=== PATIENT | male | born 1985 | race Caucasian/White ===

== ENCOUNTER → 2017-10-27 | Outpatient (CLI) | payer OTHER ==
[~2017-10-27] MED LIST: BLOO-1318 MC; DOCU-416 PO; IBUP600T22 PO; INSU100C10 SQ; INSU100C12 SQ; INSU100V24 SQ; LANI SUBQ; LISI5TAB25 PO; PER PO
== END ==
LOC: LAB 10:24
PROVIDERS: ATTEND Internal Medicine
DX: E11.9 Type 2 diabetes mellitus without complications (principal); R80.9 Proteinuria, unspecified
CPT/HCPCS: 81001; 82043

== ENCOUNTER 2018-05-12 03:36 | Emergency (ER) | payer OTHER ==
--- NOTE | 2018-05-12 03:40 | ER Report ---
History and Physical Time Seen By MD: 03:40 HPI/ROS CHIEF COMPLAINT: Cough, shortness breath, sinus pressure HISTORY OF PRESENT ILLNESS: Patient is a 32-year-old male here with complaints of 3 day history of cough, shortness breath, sinus pressure. Patient reports having a sick contact of his child. He reports that he has been unable to sleep for the past several days due to cough, shortness of breath. Patient reports having childhood asthma history and current type I diabetes. Patient has a temp of 99.7 at time of evaluation. Patient reports not having significant relief of symptoms with Mucinex or hkeg-zvb-[id number] cough medication. REVIEW OF SYSTEMS: Constitutional: No fever, no chills. Eyes: No discharge. ENT: + sore throat. Cardiovascular: No chest pain, no palpitations. Respiratory: + cough, + shortness of breath. Gastrointestinal: No abdominal pain, no vomiting. Genitourinary: No hematuria. Musculoskeletal: No back pain. Skin: No rashes. Neurological: + headache, + sinus pressure. Allergies: Coded Allergies: No Known Drug Allergies (Unverified , 10/13/16) Home Meds Active Scripts Azithromycin (ZITHROMAX) 250 Mg Tablet, 1 TAB PO QDAY for 4 Days, #4 TAB Prov:MONTRELL FRITZ DO 05/12/18 Benzonatate 100 Mg Cap (TESSALON PERLE 100 MG CAP) 100 Mg Capsule, 100 MG PO TID, #15 CAP Prov:MONTRELL FRITZ DO 05/12/18 Guaifenesin/Codeine (GUAIFENESIN-CODEINE SYRUP) 5 Ml Syrp, 5 ML PO Q6H PRN for COUGH, #120 ML 0 Refills Prov:MONTRELL FRITZ DO 05/12/18 Insulin Glargine (LANTUS) 100 Unit/Ml Soln, 25 UNIT SUBQ DIRECTED, #4 VIAL 2 Refills 25 units in am and 15 units in pm Prov:JOSÉ LUIS FERRERA MD 12/17/17 Lisinopril (LISINOPRIL) 5 Mg Tablet, 1 TAB PO QDAY, #90 TAB 3 Refills Prov:JOSÉ LUIS FERRERA MD 12/17/17 Insulin Lispro 100 Un/Ml Vial (HUMALOG 100 U/ML VIAL) 100 Unit/1 Ml Vial, 5 UNIT SQ TID, #4 VIAL 3 Refills Prov:JOSÉ LUIS FERRERA MD 12/17/17 Blood Sugar Diagnostic (ONE TOUCH ULTRA TEST STRIPS) 1 Each Strip, 1 EACH MC TID, #300 STRIP 4 Refills Prov:JOSÉ LUIS FERRERA MD 12/17/17 Smoking Status: Never Smoker Hx Substance Use Disorder: No Hx Alcohol Use: No Constitutional Vital Sign - Last 24 Hours 05/12/18 05/12/18 05/12/18 05/12/18 03:40 03:40 03:50 03:50 Temp 99.7 Pulse 117 107 Resp 17 22 B/P (MAP) 118/68 118/68 (85) Pulse Ox 91 91 O2 Delivery Room Air Room Air 05/12/18 05/12/18 05/12/18 05/12/18 03:58 04:00 04:06 04:13 Pulse 116 116 Resp 22 22 B/P (MAP) 116/79 (91) Pulse Ox 91 05/12/18 05/12/18 05/12/18 05/12/18 04:13 04:16 04:30 04:36 Pulse 112 133 Resp 22 B/P (MAP) 110/70 (83) Pulse Ox 92 91 O2 Delivery Room Air Physical Exam General Appearance: The patient is alert, has no immediate need for airway protection and no signs of toxicity. Uncomfortable appearing Eyes: Pupils equal and round no pallor or injection. ENT, Mouth: Mucous membranes are moist + maxillary and frontal sinus pressure Respiratory: There are no retractions,coarse lung sounds b/l Cardiovascular: + tachycardia, regular Gastrointestinal: Abdomen is soft and non tender, no masses, bowel sounds normal. Neurological: No focal neuro deficits Skin: Warm and dry, no rashes. DIFFERENTIAL DIAGNOSIS: After history and physical exam differential diagnosis was considered for adult fever including but not limited to viral syndromes inc luding influenza, bronchitis, pneumonia and sepsis. Medical Decision Making ED Course/Re-evaluation ED Course Patient is a 32-year-old male here with 3 day history of cough, shortness of breath, sinus pressure, general malaise. Patient reports having a sick contact of his child. Patient reports having a persistent dry cough preventing him from sleeping for the past several nights. Patient has been taking wamy-uxi-jjhrmfs cough medications without significant relief of symptoms including Mucinex. Patient was given a liter of fluids to do medical symptoms of dehydration and tachycardia. Patient was also given DuoNeb treatments for shortness of breath and coarse breath sounds bilaterally, worse in the RLL. Patient was administered Tessalon Perles and was given a prescription for Tessalon Perles and guaifenesin with codeine for nighttime cough relief. Chest x-ray was completed and demonstrated a right lower lobe pneumonia. Patient was placed on azithromycin and was given 500 mg prior to discharge and a prescription for 250 mg for 4 subsequent days. Albuteral HFA was given for OP dyspnea Q 6 H PRN. Patient was advised to return promptly if you develop worsening shortness breath, fevers, worsening malaise. Decision to Disposition Date: May 12, 2018 Decision to Disposition Time: 05:50 Depart Departure Latest Vital Signs Vital Signs Date Time Temp Pulse Resp B/P (MAP) Pulse Ox O2 Delivery O2 Flow Rate FiO2 05/12/18 04:36 133 91 05/12/18 04:30 110/70 (83) 05/12/18 04:16 22 05/12/18 04:13 Room Air 05/12/18 03:40 99.7 Impression: Primary Impression: Pneumonia Additional Impressions: Cough Shortness of breath Condition: Improved Disposition: HOME OR SELF-CARE Referrals: JOSÉ LUIS FERRERA MD (PCP) New Scripts Azithromycin (ZITHROMAX) 250 Mg Tablet 1 TAB PO QDAY for 4 Days, #4 TAB Prov: MONTRELL FRITZ DO 05/12/18 Benzonatate 100 Mg Cap (TESSALON PERLE 100 MG CAP) 100 Mg Capsule 100 MG PO TID, #15 CAP Prov: MONTRELL FRITZ DO 05/12/18 Guaifenesin/Codeine (GUAIFENESIN-CODEINE SYRUP) 5 Ml Syrp 5 ML PO Q6H PRN for COUGH, #120 ML 0 Refills Prov: MONTRELL FRITZ DO 05/12/18 Patient Instructions: Azithromycin (By mouth), Bacterial Pneumonia (ED) Additional Instructions: You were diagnosed with a right lower lobe pneumonia. Your given 500 mg of azithromycin in the emergency department. Please take one tablet or 250 mg of azithromycin daily for the next 4 days. You may take 5 mL of guaifenesin codeine every 6 hours as needed for cough relief. Please drink plenty of water as you appeared clinically dehydrated on exam. You may take Tessalon Perles as needed for cough relief. You were given DuoNeb nebulizer treatments for relief of shortness of breath. You may take 2 puffs of the albuterol inhaler every 4-6 hours as needed for shortness of breath. Please return promptly if you develop worsening shortness breath, worsening cough, fevers, chills, oral intolerance of liquids or food. Please follow-up with your family doctor in the next 3 days for reevaluation and further care. Problem Qualifiers MONTRELL FRITZ DO May 12, 2018 03:40
[2018-05-12] MEDS: ALBUTEROL/IPRATROPIUM 3 ML NEB NEB SCH ×3 (03:56→04:16)
[2018-05-12] MEDS ORDERED: guaiFENesin/CODEINE 5 ML UDBTL PO ONE (04:35)
[2018-05-12] MEDS ORDERED: BENZONATATE 100 MG CAP PO ONE (04:35)
[2018-05-12] MEDS ORDERED: BENZ100C4 PO (05:00)
[2018-05-12] MEDS ORDERED: ROBC PO (05:00)
[2018-05-12] MEDS ORDERED: ALBUTEROL 8 GM INHALER INH ONE (05:05)
--- NOTE | 2018-05-12 05:26 | RADIOLOGY IMAGING REPORT ---
FACILITY: [facility] PATIENT NAME: Arnoldo Hollis : 1985 MR: [id number] V: [id number] EXAM DATE: ORDERING PHYSICIAN: MONTRELL FRITZ TECHNOLOGIST: Location: [facility] Patient: Arnoldo Hollis : 1985 Visit/Account:[id number] Date of Sevice: 05/12/2018 CHEST: Indication: Persistent cough and respiratory distress. Technique: Frontal and lateral views were obtained. Comparison: None. Skeletal and soft tissue structures: Intact and unremarkable. Heart and mediastinum: Within normal limits. Lung christopher: There is parenchymal consolidation in the right lower lobe, compatible with acute pneumo michael. The lung christopher are otherwise clear. Pleural spaces: No evidence of effusion. Impression: Right lower lobe consolidation, compatible with acute pneumonia. Report Dictated By: Albaro Marcus MD at 05/12/2018 5:12 AM Report E-Signed By: Albaro Marcus MD at 05/12/2018 5:22 AM WSN:[id number]
[2018-05-12 05:30] VITALS: BP 115/61
[2018-05-12] MEDS ORDERED: AZIT-1 PO (05:34)
[2018-05-12] MEDS ORDERED: AZITHROMYCIN 250 MG TAB PO ONE (05:35)
== END 2018-05-12 05:54 | disposition home or self-care (01) ==
LOC: ER 03:39
DX: J18.1 Lobar pneumonia, unspecified organism (principal)
CPT/HCPCS: 71046; 94640; 99284; J3535; J7620; Q0144